=== PATIENT | female | born 1995 | race Caucasian/White ===

== ENCOUNTER 2017-06-24 17:07 | Emergency (ER) | payer OTHER ==
[2017-06-24 17:17] VITALS: BP 114/60
--- NOTE | 2017-06-24 17:46 | UC ---
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 Severity Initially: Moderate Aggravating Factor(s): Standing, Ambulation Alleviating Factor(s): Rest, Ice Able to Bear Weight: No - pain - Allergies/Home Medications Home Medications: Home Medications Escitalopram Oxalate [Lexapro 20 mg] 1 cap PO DAILY 06/24/17 [History Confirmed 06/24/17] Prazosin CAP* [Minipress CAP*] 1 cap PO DAILY 06/24/17 [History Confirmed ] PMH/Surg Hx/FS Hx/Imm Hx Previously Healthy: Yes Psychological History: Anxiety, Depression - Surgical History Surgical History: None - Family History Known Family History: Positive: None - Social History Occupation: Employed Full-time - teacher Alcohol Use: Occasionally Substance Use Type: None Smoking Status (MU): Never Smoked Tobacco Review of Systems Constitutional: Negative Skin: Negative Cardiovascular: Negative Musculoskeletal: Decreased ROM - R knee Neurological: Negative Psychological: Negative All Other Systems Reviewed And Are Negative: Yes Physical Exam Triage Information Reviewed: Yes Appearance: Well-Appearing, No Pain Distress, Well-Nourished Vital Signs: Initial Vital Signs Pulse 78 06/24/17 17:13 Resp 18 06/24/17 17:13 BP 114/60 06/24/17 17:13 Vital Signs Reviewed: Yes Respiratory Exam: Normal Cardiovascular Exam: Normal Musculoskeletal: Positive: ROM Limited @ - R knee d/t pain. edema or gross deformity pain increased on medial side with valgus stress, neg drawer, no patellar apprehension Neurological Exam: Normal Neurological: Positive: Alert Psychological Exam: Normal Skin Exam: Normal Lower Extremity Course/Dx - Differential Dx/Diagnosis Differential Diagnosis/HQI/PQRI: Contusion, Dislocation, Fracture (Closed), Sprain, Strain Provider Diagnoses: Knee strain Discharge - Discharge Plan Condition: Stable Disposition: HOME Patient Education Materials: Knee Immobilizer (ED), Knee Pain (ED) Referrals: Edilson Gonzales MD [Medical Doctor] - Additional Instructions: Ice and elevate leg Use knee immobilizer for stabilization Use your crutches at home ibuprofen 600mg every 6-8hours as needed for pain follow-up with orthopedics - call Monday
== END 2017-06-24 17:50 | disposition home or self-care (01) ==
LOC: UCEAST 17:07
DX: S86.911A Strain of unspecified muscle(s) and tendon(s) at lower leg level, right leg, initial encounter (principal); X50.1XXA Overexertion from prolonged static or awkward postures, initial encounter; Y93.66 Activity, soccer; Y92.9 Unspecified place or not applicable
CPT/HCPCS: 99202; G0463